=== PATIENT | female | born 1995 | race Caucasian/White ===

== ENCOUNTER 2021-09-13 23:07 | Emergency (ER) | payer BC, OTHER ==
[2021-09-13 23:26] VITALS: BP 116/83; PULSE 70; TEMP 98.4; BMI 24.7
[2021-09-14] MEDS ORDERED: ACETAMINOPHEN 325 MG TABLET (FP) PO ONE (00:03)
[2021-09-14] MEDS ORDERED: ACETAMINOPHEN 325 MG TABLET (FP) ONE ×2 (00:17→00:18)
== END 2021-09-14 01:51 | disposition home or self-care (01) ==
LOC: JER 23:07
DX: S09.90XA Unspecified injury of head, initial encounter (principal); W22.09XA Striking against other stationary object, initial encounter
CPT/HCPCS: 70450-TC; 84703; 99284-25